=== PATIENT | female | born 1960 | race Caucasian/White ===

== ENCOUNTER → 2016-10-30 | Outpatient (CLI) | payer OTHER ==
--- NOTE | 2016-10-30 12:33 | RAD ---
EXAM DESCRIPTION: Knee,Right Complete CLINICAL HISTORY: 56 years, Female, PAIN IN RT KNEE COMPARISON: None. FINDINGS: No fracture or dislocation. Mild narrowing the patellofemoral joint space. Slight narrowing medially. No definite joint effusion. IMPRESSION: Mild degenerative change without fracture or dislocation Electronically signed by: Joel Kruse MD 10/30/2016 12:31 PM CDT
== END | disposition home or self-care (01) ==
LOC: YCFC.O 09:41
PROVIDERS: ATTEND Nurse Practitioner Family
DX: M25.561 Pain in right knee (principal)

== ENCOUNTER → 2017-01-29 | Outpatient (CLI) | payer OTHER ==
--- NOTE | 2017-01-29 13:18 | RAD ---
EXAM DESCRIPTION: Knee,Right Complete CLINICAL HISTORY: 56 years, Female, PAIN IN RIGHT KNEE COMPARISON: October 30, 2016 TECHNIQUE: Four views of the right knee FINDINGS: The right knee is normally aligned with mild osteopenia and very little degenerative disease. No fracture or dislocation or significant joint effusion is seen. No foreign body is noted. IMPRESSION: 1. No acute abnormality noted. Electronically signed by: Claudio Gamboa MD 01/29/2017 1:17 PM CDT
--- NOTE | 2017-01-29 13:20 | RAD ---
EXAM DESCRIPTION: Pelvis CLINICAL HISTORY: 56 years Female, PAIN IN RIGHT HIP COMPARISON: None. FINDINGS: A single view of the hip demonstrates mild osteopenia media. Previous internal fixation of the left hip with a fluted nail and sideplate noted extending from the femoral head to the femoral shaft. A long sideplate along the proximal and mid femoral shaft is noted with multiple anchoring screws. Right hip appears intact without evidence of prior fracture or orthopedic hardware. The bony pelvis appears intact. IMPRESSION: Previous internal fixation of the left hip and proximal femoral shaft. Otherwise negative study. Electronically signed by: Claudio Gamboa MD 01/29/2017 1:19 PM CDT
== END | disposition home or self-care (01) ==
LOC: RAD 08:13
PROVIDERS: ATTEND Orthopaedic Surgery
DX: M25.561 Pain in right knee (principal); M25.551 Pain in right hip

== ENCOUNTER → 2017-03-02 | Outpatient (CLI) | payer OTHER | END | disposition home or self-care (01) | LOC: LAB.O 09:54 | PROVIDERS: ATTEND Orthopaedic Surgery | DX: Z01.812 Encounter for preprocedural laboratory examination (principal) ==

== ENCOUNTER 2017-03-14 05:50 | Day surgery (SDC) | payer OTHER ==
--- NOTE | 2017-03-09 09:11 | HP ---
CHIEF COMPLAINT: Right knee pain. HISTORY OF PRESENT ILLNESS: Ms. North is a 56-year-old female with a history of pain in the knee. Unfortunately, she has also had mechanical symptoms. Because of the mechanical symptoms, the pain and the failure of conservative measures with disruption in her daily life, she has requested operative intervention. After discussing the risks, benefits and alternatives to that, the patient has given informed consent. PAST SURGICAL HISTORY: 1. Gastric bypass. MEDICATIONS: 1. Advil. ALLERGIES: NO KNOWN DRUG ALLERGIES. CODE STATUS: Full code. IMMUNIZATIONS: Up to date. SOCIAL HISTORY: The patient does smokes and drinks on occasion, but does not use any illicit drugs. FAMILY HISTORY: None pertinent to today's complaint. REVIEW OF SYSTEMS: Negative except as indicated in the History of Present Illness. PHYSICAL EXAMINATION: VITAL SIGNS: Blood pressure 144/85. Pulse 97. Height 5'3". Weight 151. MENTAL STATUS: The patient is awake, alert, and is able to give a good history and participate in the physical. The patient is oriented to person, place and time. SKIN: Normal tone and turgor. MUSCULOSKELETAL: She has diffuse tenderness about the knee, but it is most prominent along the medial aspect. She does have full extension, but the terminal 10 degrees is very painful. She has crepitus throughout her range of motion with flexion to about 130 degrees. She has no varus/valgus or anterior/ posterior laxity. She has positive Royer's on the medial aspect. IMAGING: X-rays show some diffuse arthritic changes, but no acute bony abnormality. ASSESSMENT: 1. Knee pain with mechanical symptoms. PLAN: The plan at this point is for knee arthroscopy. Given the pain that she is having, she has requested operative intervention. I think there is a potential that she has a meniscal tear. We have discussed the risks, benefits, and alternatives to that and the patient has given informed consent. #[id number] [facility]
--- NOTE | 2017-03-09 11:10 | RAD ---
EXAM DESCRIPTION: Chest,2 Views CLINICAL HISTORY: surg on 03/14/17 preop exam COMPARISON: None FINDINGS: Two-view chest x-ray shows cardiomediastinal silhouette and pulmonary vasculature to be within normal limits. The lungs are mildly hyperinflated. No acute infiltrate or consolidation is seen.. Costophrenic angles are sharp. Osseous structures are unremarkable IMPRESSION: No radiographic evidence of acute cardiopulmonary disease . Electronically signed by: Stiven Morales MD 03/09/2017 11:08 AM CDT
[2017-03-14] MEDS ORDERED: SODIUM CHL 0.9% 50ML MIN-BAG+ 50 ML IVPB ONE (06:13)
[2017-03-14] MEDS ORDERED: ceFAZolin SODIUM 1 GM VIAL ONE ×2 (06:13→06:32)
[2017-03-14] MEDS ORDERED: LACTATED RINGERS 1,000 ML ONE (06:13)
[2017-03-14] MEDS ORDERED: BUPIVACAINE 0.5% W/EPI 30 ML VIAL INJ ONE (06:32)
[2017-03-14] MEDS ORDERED: SODIUM CHLORIDE 0.9% 50 ML VIAL ONE (06:33)
[2017-03-14] MEDS ORDERED: fentaNYL CITRATE INJ 50 MCG/ML AMP ONE (08:27)
[2017-03-14] MEDS ORDERED: MIDAZOLAM INJ 2 MG/2 ML VIAL ONE (08:27)
[2017-03-14] MEDS ORDERED: PROPOFOL 200 MG/20 ML VIAL IV ONE (09:00)
[2017-03-14] MEDS: VANCOMYCIN HCL INJ 1,000 MG VIAL IVPB ONE ×2 (09:23→09:43)
[2017-03-14] MEDS: ceFAZolin SODIUM 1 GM VIAL ONE ×2 (09:23→09:43)
[2017-03-14] MEDS ORDERED: HYDROcodone 5MG/APAP 325MG 1 EA TAB PO ONE ×2 (11:00→11:26)
[2017-03-14] MEDS ORDERED: LIDOCAINE 1% 10 ML VIAL INJ ONE (12:00)
[2017-03-14] MEDS ORDERED: METOCLOPRAMIDE HCL INJ 10 MG/2 ML VIAL IV ONE (12:00)
[2017-03-14] MEDS ORDERED: DEXAMETHASONE INJ 10 MG/ML VIAL IV ONE (12:00)
[2017-03-14] MEDS ORDERED: diphenhydrAMINE HCL 50 MG/ML VIAL IV ONE (12:00)
[2017-03-14] MEDS ORDERED: raNITIdine HCL INJ 25 MG/ML VIAL IV ONE (12:00)
[2017-03-14] MEDS ORDERED: SODIUM CHLORIDE 0.9% 50 ML VIAL INJ ONE (12:00)
[2017-03-14 12:08] VITALS: BP 136/80; TEMP 97.8; O2SAT 97
--- NOTE | 2017-03-19 09:19 | OP ---
DATE OF PROCEDURE: 03/14/17 PREOPERATIVE DIAGNOSIS: 1. Knee pain. POSTOPERATIVE DIAGNOSIS: 1. Tear of the medial meniscus. 2. Osteoarthritis. PROCEDURE: 1. Partial meniscectomy. 2. Debridement. SURGEON: John Lugo MD. PERSONAL FITNESS MANAGER: Alexander León CST, SA-C. ANESTHESIA: General. COMPLICATIONS: None. FINDINGS: 1. Complex tearing of the medial meniscus. 2. Full thickness defects in the medial compartment involving the femoral cartilage with flap tears in the cartilage. 3. Normal ACL and normal PCL. 4. Normal lateral gutter. 5. Normal suprapatellar pouch. 6. Patellofemoral arthritis with full thickness defects in the trochlear groove. 7. Medial gutter. INDICATION: Ms. North has a long history of pain in the knee. She has had pain that has been refractory to conservative measures. Because of the ongoing pain and the refractory nature of it, she has requested operative intervention. After discussing the risks, benefits and alternatives to that, the patient has given informed consent for arthroscopy. PROCEDURE: The patient was brought to the Operating Room and placed in supine position. General anesthesia was induced and the patient's leg was sterilely prepped and draped. Following prepping and draping, standard anteromedial and anterolateral portals were established. Diagnostic arthroscopy was carried out with the above findings. Following diagnostic arthroscopy, the medial meniscus and the cartilage of the medial femoral condyle were debrided. Following debridement there, attention was focused on the lateral compartment and the cartilage was debrided. Attention was then focused on the patellofemoral compartment. The cartilage was debrided. The knee was very thoroughly irrigated and drained. Following draining of the knee, the wounds were closed with Nylon suture. Sterile dressings were placed. The patient was awoken from anesthesia and taken to Recovery. POSTOPERATIVE INSTRUCTIONS: The patient will be partial weightbearing until followup with us in two days. #[id number] [facility]
== END 2017-03-14 11:25 | disposition home or self-care (01) ==
LOC: AMB 05:50
PROVIDERS: ATTEND Orthopaedic Surgery
DX: S83.231A Complex tear of medial meniscus, current injury, right knee, initial encounter (principal); J44.9 Chronic obstructive pulmonary disease, unspecified; Z98.84 Bariatric surgery status; F17.200 Nicotine dependence, unspecified, uncomplicated
CPT/HCPCS: 01400; 29881; 36415; 71020; 80048; 85025; 93005; A4216; J0690; J1100; J1200; J2250; J2765; J2780; J3010; J3370; J3490; J7050; J7120

== ENCOUNTER → 2017-08-02 | Outpatient (CLI) | payer OTHER ==
--- NOTE | 2017-08-03 09:18 | RAD ---
EXAM DESCRIPTION: Chest,2 Views CLINICAL HISTORY: PRE OP COMPARISON: Previous study March 09, 2017 TECHNIQUE: PA/lateral FINDINGS: There is no acute appearing cardiac or pulmonary abnormality. Heart size is normal with normal pulmonary vascularity. No pleural effusion or pneumothorax. Lungs are clear with no consolidating infiltrate. Lateral view shows intact sternum and T-spine. IMPRESSION: No acute process is identified in the chest. Electronically signed by: Gokul Fragoso MD 08/03/2017 9:16 AM CDT
== END ==
LOC: LAB.O 10:27
PROVIDERS: ATTEND Orthopaedic Surgery
DX: Z01.818 Encounter for other preprocedural examination (principal)

== ENCOUNTER → 2017-08-27 | Outpatient (CLI) | payer OTHER | LOC: YCFC.O 08:41 | PROVIDERS: ATTEND Orthopaedic Surgery | DX: Z01.818 Encounter for other preprocedural examination (principal) ==

== ENCOUNTER 2017-08-29 05:45 | Outpatient (CLI) | payer OTHER ==
--- NOTE | 2017-08-27 11:52 | HP ---
CHIEF COMPLAINT: Right knee pain. HISTORY OF PRESENT ILLNESS: Eliana is a 56-year-old female with a history of severe right knee pain. She has had injections, anti-inflammatories, therapy and even arthroscopy. She had a short period of relief, however, has of late been having such severe pain that it is causing her to have to use a cane. She denies any radiation of pain and denies any neurologic symptoms at this time. PAST SURGICAL HISTORY: 1. Gastric bypass surgery. 2. Knee arthroscopy. MEDICATIONS: 1. Advil p.r.n. ALLERGIES: NO KNOWN DRUG ALLERGIES. CODE STATUS: Full code. IMMUNIZATIONS: Up to date. SOCIAL HISTORY: The patient does not use any illicit drugs. She does smoke and does drink on occasion. FAMILY HISTORY: None pertinent to today's complaint. REVIEW OF SYSTEMS: Negative except as indicated in the History of Present Illness. PHYSICAL EXAMINATION: VITAL SIGNS: Blood pressure 145/82. Pulse 94. Height 5'3". Weight 153 pounds. MENTAL STATUS: The patient is awake, alert, and is able to give a good history and participate in the physical. The patient is oriented to person, place and time. SKIN: Normal tone and turgor. HEENT: Normocephalic, atraumatic. Pupils equal, round and reactive. Mucosal membranes are moist. NECK: Normal range of motion. No thyromegaly, no lymphadenopathy. CHEST: Normal respiratory excursion. CARDIAC: Regular rate and rhythm. No murmurs, rubs or gallops. MUSCULOSKELETAL: Bilateral upper extremities show full active range of motion. She has intact sensation. They are warm and well perfused. She has no deformity. Strength is 5/5. The left lower extremity shows full range of motion of the hip. She has intact sensation in the extremity. She has no varus /valgus or anterior/posterior laxity. She has no instability and no crepitus. The right knee shows severe pain medially and moderate pain laterally. She has pain with patellar mobilization. She has a mild effusion today. Sensation is intact. It is warm and well perfused. She has crepitus throughout her range of motion, but maintains full extension with flexion to about 120 degrees. ASSESSMENT: 1. Arthritis failed conservative measures. PLAN: At this point, she has failed all conservative measures. To that end, she has requested operative intervention. We have discussed the risks, benefits , and alternatives to that and the patient has given informed consent. #[id number] [facility]
[2017-08-29] MEDS ORDERED: MORPHINE SULFATE INJ 10 MG/ML VIAL IM PRN (07:05)
[2017-08-29] MEDS ORDERED: SODIUM CHLORIDE 0.9% (FLUSH) 10 ML SYG IV PRN (07:05)
[2017-08-29] MEDS ORDERED: BISACODYL SUPPOSITORY 10 MG PR PRN (07:05)
[2017-08-29] MEDS ORDERED: TEMAZEPAM 15 MG CAP PO PRN (07:05)
[2017-08-29] MEDS ORDERED: HYDROcodone 5MG/APAP 325MG 1 EA TAB PO PRN (07:05)
[2017-08-29] MEDS ORDERED: DEX 5% W/NACL 0.45% 1000ML 1,000 ML IVS PRN (07:05)
[2017-08-29] MEDS ORDERED: TRANEXAMIC ACID INJ 1,000 MG in SODIUM CHLORIDE 0.9% 100ML 100 ML IVPB ONE (07:05)
[2017-08-29] MEDS ORDERED: BENZOCAINE-MENTH LOZ (CEPACOL) 1 EA LOZ MT PRN (07:05)
[2017-08-29] MEDS ORDERED: MAGNESIUM HYDROXIDE 30 ML UD PO PRN (07:05)
[2017-08-29] MEDS ORDERED: PROMETHAZINE HCL INJ 12.5 MG in SODIUM CHLORIDE 0.9% 50ML 50 ML IVPB PRN (07:05)
[2017-08-29] MEDS ORDERED: ZOLPIDEM TARTRATE 5 MG TAB PO PRN (07:05)
[2017-08-29] MEDS ORDERED: traMADol HCL 50 MG TAB PO PRN (07:05)
[2017-08-29] MEDS ORDERED: NALOXONE HCL INJ 0.4 MG/ML VIAL IV PRN (07:05)
[2017-08-29] MEDS ORDERED: MORPHINE SULFATE INJ 10 MG/ML VIAL IV PRN (07:05)
[2017-08-29] MEDS ORDERED: ALUMINUM & MAGNESIUM HYDROXIDE 30 ML UD PO PRN (07:05)
[2017-08-29] MEDS ORDERED: ACETAMINOPHEN 500 MG TAB PO PRN (07:05)
[2017-08-29] MEDS ORDERED: ONDANSETRON INJ 4 MG/2 ML VIAL IV PRN (07:05)
[2017-08-29] MEDS ORDERED: CYCLOBENZAPRINE HCL 10 MG TAB PO PRN (07:05)
[2017-08-29] MEDS ORDERED: ACETAMINOPHEN 325 MG TAB PO PRN (07:05)
[2017-08-29] MEDS ORDERED: PROMETHAZINE HCL INJ 25 MG in SODIUM CHLORIDE 0.9% 50ML 50 ML IVPB PRN (07:05)
[2017-08-29] MEDS ORDERED: MORPHINE PCA 1 MG/ML 100 ML BAG IVPB SCH (07:30)
[2017-08-29] MEDS ORDERED: CELECOXIB 100 MG CAP PO SCH (07:30)
[2017-08-29] MEDS ORDERED: IV SET AND CAP CHANGE INJ INJ SCH (07:30)
[2017-08-29] MEDS ORDERED: ceFAZolin SODIUM 1 GM VIAL ONE ×3 (08:46→08:50)
[2017-08-29] MEDS ORDERED: BUPIVACAINE 0.25% W/EPI 50 ML VIAL INJ ONE (08:46)
[2017-08-29] MEDS ORDERED: VANCOMYCIN HCL INJ 1,000 MG VIAL IVPB ONE ×2 (08:46→08:50)
[2017-08-29] MEDS ORDERED: LACTATED RINGERS 1,000 ML ONE (08:49)
[2017-08-29] MEDS ORDERED: SCOPOLAMINE PATCH 1.5MG 1 EA TD ONE (08:49)
[2017-08-29] MEDS ORDERED: SODIUM CHL 0.9% 50ML MIN-BAG+ 50 ML IVPB ONE (08:49)
[2017-08-29] MEDS ORDERED: SODIUM CHLORIDE 0.9% 250ML 250 ML ONE (08:50)
[2017-08-29] MEDS ORDERED: SODIUM CHLORIDE 0.9% 100ML 0 ML IVPB ONE (08:50)
[2017-08-29] MEDS ORDERED: TRANEXAMIC ACID 1,000 MG/10 ML VIAL ONE ×2 (08:50→08:51)
[2017-08-29] MEDS ORDERED: MORPHINE SULF *EPIDURAL* 1 MG/ML VIAL ONE (08:52)
[2017-08-29] MEDS ORDERED: MIDAZOLAM INJ 2 MG/2 ML VIAL ONE (08:52)
[2017-08-29] MEDS ORDERED: ACETAMINOPHEN IV 1000MG 0 ML ONE (08:52)
[2017-08-29] MEDS ORDERED: fentaNYL CITRATE INJ 50 MCG/ML AMP ONE (08:52)
[2017-08-29] MEDS ORDERED: MAGNESIUM OXIDE 400 MG TAB PO SCH (09:00)
[2017-08-29 09:27] VITALS: TEMP 98.1; O2SAT 96
[2017-08-29 09:35] VITALS: BP 128/70
[2017-08-29] MEDS ORDERED: ceFAZolin SODIUM 2 GRAMS PREMI 2 GM in PREMIX BAG 1 BAG IVPB SCH (16:00)
[2017-08-29] MEDS ORDERED: VANCOMYCIN HCL INJ 1,000 MG in SODIUM CHLORIDE 0.9% 250ML 250 ML IVPB SCH (18:00)
[2017-08-29] MEDS ORDERED: DOCUSATE CALCIUM 240 MG CAP PO SCH (21:00)
[2017-08-29] MEDS ORDERED: ENOXAPARIN SODIUM 30 MG/0.3 ML SYG SUBCU SCH (23:00)
[2017-08-31] MEDS ORDERED: SODIUM CHLORIDE 0.9% (FLUSH) 10 ML SYG IV SCH (09:00)
[2017-09-01] MEDS ORDERED: MAGNESIUM HYDROXIDE 30 ML UD PO ONE (21:00)
[2017-09-01] MEDS ORDERED: BISACODYL SUPPOSITORY 10 MG PR ONE (21:00)
== END 2017-08-29 09:20 | disposition home or self-care (01) ==
LOC: AMB 05:45 → EDSTATUS 09:45
PROVIDERS: ATTEND Orthopaedic Surgery
DX: Z01.818 Encounter for other preprocedural examination (principal); M17.11 Unilateral primary osteoarthritis, right knee; Z53.20 Procedure and treatment not carried out because of patient's decision for unspecified reasons
CPT/HCPCS: 36415; 86850; 86900; 86901; J0690; J3370; J7050; J7120

== ENCOUNTER → 2018-02-28 | Outpatient (CLI) | payer MEDICARE, MEDICAID | LOC: LAB.O 11:38 | PROVIDERS: ATTEND Orthopaedic Surgery | DX: Z01.818 Encounter for other preprocedural examination (principal) ==

== ENCOUNTER → 2018-03-08 | Outpatient (CLI) | payer MEDICARE, MEDICAID ==
--- NOTE | 2018-03-08 11:52 | RAD ---
EXAM DESCRIPTION: Chest,2 Views CLINICAL HISTORY: PREOP COMPARISON: Previous study August 02, 2017 TECHNIQUE: PA/lateral FINDINGS: There is no acute appearing cardiac or pulmonary abnormality. Heart size is normal with normal pulmonary vascularity. No pleural effusion or pneumothorax. Lungs are clear with no consolidating infiltrate. Lateral view shows intact sternum and T-spine. IMPRESSION: No acute process is identified in the chest. Electronically signed by: Gokul Fragoso MD 03/08/2018 11:50 AM CDT
== END ==
LOC: LAB.O 09:29
PROVIDERS: ATTEND Nurse Practitioner Family
DX: Z01.818 Encounter for other preprocedural examination (principal)

== ENCOUNTER 2018-04-02 05:39 | Inpatient (IN) | payer MEDICARE, MEDICAID ==
--- NOTE | 2018-04-01 11:56 | HP ---
CHIEF COMPLAINT: Right knee pain. HISTORY OF PRESENT ILLNESS: Eliana is a 57-year-old female with a history of severe pain in the knee. She has had pain going for a very long time and has had interventions to include activity modification, anti-inflammatories, injections and arthroscopy. At the time of arthroscopy, it was noted that she had diffuse arthritic changes in addition to meniscal pathology. Because of her failure of conservative measures and ongoing dysfunction, she has requested operative intervention. After discussing the risks, benefits and alternatives to that, the patient has given informed consent. PAST SURGICAL HISTORY: 1. Knee arthroscopy. MEDICATIONS: None. ALLERGIES: NO KNOWN DRUG ALLERGIES. FAMILY HISTORY: None pertinent to today's complaint. SOCIAL HISTORY: The patient does not drink, smoke or use any illicit drugs. REVIEW OF SYSTEMS: Negative except as indicated in the History of Present Illness. PHYSICAL EXAMINATION: VITAL SIGNS: Blood pressure 148/83. Pulse 83. Height 5'3". Weight 157 pounds. MENTAL STATUS: The patient is awake, alert, and is able to give a good history and participate in the physical. The patient is oriented to person, place and time. SKIN: Normal tone and turgor. HEENT: Normocephalic, atraumatic. Pupils equal, round and reactive. Mucosal membranes are moist. NECK: Normal range of motion. No thyromegaly, no lymphadenopathy. CHEST: Normal respiratory excursion. CARDIAC: Regular rate and rhythm. No murmurs, rubs or gallops. MUSCULOSKELETAL: The bilateral upper extremities show no significant pain with range of motion. Sensation is intact. They are warm and well perfused. Strength is 5/5. She has no deformity and no crepitus. The left lower extremity shows full range of motion of the hip. She has intact sensation throughout. She has no significant pain with range of motion of the knee. The right lower extremity shows full range of motion of the hip without significant pain. Sensation is intact in the extremity. She has crepitus throughout the range of motion along with pain. Strength is 5/5. She has no varus/valgus or anterior/posterior laxity. IMAGING: X-rays show arthritis as well as findings at the time of arthroscopy. ASSESSMENT: 1. Arthritis, failed conservative measures. PLAN: The plan at this point is for total knee arthroplasty. We have discussed the risks, benefits, and alternatives to that and the patient has given informed consent. #[id number] [facility]
[2018-04-02] MEDS ORDERED: SODIUM CHL 0.9% 100ML MINI-BAG 100 ML IVPB ONE (07:47)
[2018-04-02] MEDS ORDERED: VANCOMYCIN HCL INJ 1,000 MG VIAL IVPB ONE ×4 (07:48→19:24)
[2018-04-02] MEDS ORDERED: TRANEXAMIC ACID 1,000 MG/10 ML VIAL ONE ×2 (07:48→07:49)
[2018-04-02] MEDS ORDERED: SODIUM CHLORIDE 0.9% 100ML 100 ML IVPB ONE (07:48)
[2018-04-02] MEDS ORDERED: LACTATED RINGERS 1,000 ML ONE ×2 (07:48→12:01)
[2018-04-02] MEDS ORDERED: SODIUM CHLORIDE 0.9% 250ML 250 ML ONE ×4 (07:48→19:24)
[2018-04-02] MEDS ORDERED: ceFAZolin SODIUM 1 GM VIAL ONE ×2 (07:48→08:56)
[2018-04-02] MEDS ORDERED: TRANEXAMIC ACID INJ 1,000 MG in SODIUM CHLORIDE 0.9% 100ML 100 ML IVPB ONE (09:18)
[2018-04-02] MEDS ORDERED: SODIUM CHLORIDE 0.9% (FLUSH) 10 ML SYG IV PRN (09:18)
[2018-04-02] MEDS ORDERED: ONDANSETRON INJ 4 MG/2 ML VIAL IV PRN (09:18)
[2018-04-02] MEDS ORDERED: MORPHINE SULFATE INJ 10 MG/ML VIAL IV PRN (09:18)
[2018-04-02] MEDS ORDERED: PROMETHAZINE HCL INJ 25 MG in SODIUM CHLORIDE 0.9% 50ML 50 ML IVPB PRN (09:18)
[2018-04-02] MEDS ORDERED: BENZOCAINE-MENTH LOZ (CEPACOL) 1 EA LOZ MT PRN (09:18)
[2018-04-02] MEDS ORDERED: BISACODYL SUPPOSITORY 10 MG PR PRN (09:18)
[2018-04-02] MEDS ORDERED: PROMETHAZINE HCL INJ 12.5 MG in SODIUM CHLORIDE 0.9% 50ML 50 ML IVPB PRN (09:18)
[2018-04-02] MEDS ORDERED: NALOXONE HCL INJ 0.4 MG/ML VIAL IV PRN (09:18)
[2018-04-02] MEDS ORDERED: MORPHINE SULFATE INJ 10 MG/ML VIAL IM PRN (09:18)
[2018-04-02] MEDS ORDERED: ACETAMINOPHEN 500 MG TAB PO PRN (09:18)
[2018-04-02] MEDS ORDERED: TEMAZEPAM 15 MG CAP PO PRN (09:18)
[2018-04-02] MEDS ORDERED: MAGNESIUM HYDROXIDE 30 ML UD PO PRN (09:18)
[2018-04-02] MEDS ORDERED: ALUMINUM & MAGNESIUM HYDROXIDE 30 ML UD PO PRN (09:18)
[2018-04-02] MEDS ORDERED: ZOLPIDEM TARTRATE 5 MG TAB PO PRN (09:18)
[2018-04-02] MEDS ORDERED: ACETAMINOPHEN 325 MG TAB PO PRN (09:18)
[2018-04-02] MEDS ORDERED: MORPHINE PCA 1 MG/ML 100 ML BAG IVPB SCH (09:30)
[2018-04-02] MEDS ORDERED: IV SET AND CAP CHANGE INJ INJ SCH (09:30)
[2018-04-02] MEDS ORDERED: SUGAMMADEX SODIUM 200 MG/2 ML VIAL IV ONE (09:52)
[2018-04-02] MEDS ORDERED: MIDAZOLAM INJ 2 MG/2 ML VIAL ONE (09:53)
[2018-04-02] MEDS ORDERED: fentaNYL CITRATE INJ 50 MCG/ML AMP ONE ×2 (09:53→12:14)
[2018-04-02] MEDS ORDERED: MORPHINE SULFATE *EPIDURAL* 0.5 MG/ML VIAL ONE (09:53)
[2018-04-02] MEDS ORDERED: LIDOCAINE 1% 10 ML VIAL INJ ONE ×2 (10:03→12:00)
[2018-04-02] MEDS: VANCOMYCIN HCL INJ 1,000 MG VIAL IVPB ONE ×2 (11:00→11:40)
[2018-04-02] MEDS: ceFAZolin SODIUM 1 GM VIAL ONE ×2 (11:00→11:40)
[2018-04-02] MEDS: BUPIVACAINE LIPOSOME 13.3 MG/ML VIAL INJ ONE ×2 (11:01→11:39)
[2018-04-02] MEDS: BUPIVACAINE 0.5% 30 ML VIAL INJ ONE ×2 (11:01→11:39)
[2018-04-02] MEDS ORDERED: ONDANSETRON INJ 4 MG/2 ML VIAL IV ONE (12:00)
[2018-04-02] MEDS ORDERED: DEXAMETHASONE INJ 10 MG/ML VIAL IV ONE (12:00)
[2018-04-02] MEDS ORDERED: WATER FOR INJ 10 ML VIAL INJ ONE (12:00)
[2018-04-02] MEDS ORDERED: VECURONIUM BROMIDE 10 MG VIAL IV ONE (12:00)
[2018-04-02] MEDS ORDERED: PROPOFOL 200 MG/20 ML VIAL IV ONE (12:00)
[2018-04-02] MEDS: diphenhydrAMINE HCL 50 MG/ML VIAL ONE ×4 (12:30→13:05)
[2018-04-02] MEDS ORDERED: hydrOXYzine HCl 50 MG/ML VIAL IM ONE (13:09)
[2018-04-02] MEDS ORDERED: diphenhydrAMINE HCL 25 MG CAP PO PRN (14:58)
[2018-04-02] MEDS ORDERED: ceFAZolin SODIUM 2 GRAMS PREMI 50 ML IVPB ONE ×2 (15:48→19:23)
[2018-04-02] MEDS ORDERED: ceFAZolin SODIUM 1 GM in SODIUM CHL 0.9% 50ML MIN-BAG+ 50 ML IVPB SCH (16:00)
[2018-04-02] MEDS: ceFAZolin SODIUM 2 GRAMS PREMI 2 GM in PREMIX BAG 1 BAG IVPB SCH ×2 (16:11→23:41)
[2018-04-02] MEDS: CELECOXIB 100 MG CAP PO SCH (16:11)
--- NOTE | 2018-04-02 16:33 | RAD ---
Procedure: XR RIGHT KNEE 1-2 VIEWS Exam Date: 04/02/2018 Ordering Provider: RIDDHI ZAMUDIO Clinical Indication: TKA Comparison: 01/29/2017 Findings/impression: Postsurgical changes of total right knee arthroplasty with good alignment and no evidence of hardware complication. Expected gas within the soft tissues about the knee and thigh. There is no fracture or dislocation. Electronically signed by: Neo Haider MD 04/02/2018 4:32 PM [facility]
[2018-04-02] MEDS: DEX 5% W/NACL 0.45% 1000ML 1,000 ML IVS PRN (16:57)
[2018-04-02] MEDS: VANCOMYCIN HCL INJ 1,000 MG in SODIUM CHLORIDE 0.9% 250ML 250 ML IVPB SCH (17:40)
[2018-04-02] MEDS ORDERED: diphenhydrAMINE HCL 50 MG/ML VIAL IV PRN (17:50)
[2018-04-02] MEDS ORDERED: ENOXAPARIN SODIUM 30 MG/0.3 ML SYG SUBCU ONE (19:23)
--- NOTE | 2018-04-02 20:04 | CONS ---
DATE OF CONSULTATION: 04/02/18 SUPERVISING PHYSICIAN: Ty Radford M.D. CHIEF COMPLAINT: Right knee pain. HISTORY OF PRESENT ILLNESS: This is a 57 year-old female patient who has a history of severe pain in her right knee. It has progressively worsened over the last few years and she has tried conservative measures, including antiinflammatories injections, arthroscopy and activity modification. Because she has failed conservative measures, she has requested operative intervention per Dr. John Lugo, orthopedic surgeon. She was admitted today for a right total knee arthroplasty. She had no problems intraoperatively and I am seeing the patient in consultation postoperatively on the Medical/Surgical floor. PAST MEDICAL HISTORY: 1. Osteoarthritis. 2. Poor dentition. PAST SURGICAL HISTORY: 1. Gastric bypass. 2. Two sections. 3. Left femur open reduction and internal fixation. 4. Dilatation and curettage. 5. Right knee arthroscopy. OUTPATIENT MEDICATIONS: 1. Advil. ALLERGIES: NO KNOWN DRUG ALLERGIES. SOCIAL HISTORY: She is . She has 2 children. She smokes 2 packs of cigarettes daily and has since she was 25 years old. She also drinks 5 to 6 beers nightly. She also drinks wine socially. Steph Ga, ROC, is her primary care provider. REVIEW OF SYSTEMS: Negative except as per History of Present Illness. PHYSICAL EXAMINATION: VITAL SIGNS: She is afebrile, heart rate 79, blood pressure 143/75, respiratory rate 20, O2 sat is 93% on room air. GENERAL: This is a 57 year-old female patient lying in her hospital bed. She is in no acute distress. HEENT: Normocephalic and atraumatic. Pupils are equal and reactive. Oropharynx is clear. She does have poor dentition. NECK: Supple without mass. RESPIRATORY: Essentially clear to auscultation bilaterally. CHEST: There is equal rise and fall of the chest with inspiration and expiration. HEART: Regular rate and rhythm. GASTROINTESTINAL: Abdomen is soft, nondistended, non-tender. Bowel sounds are positive. EXTREMITIES: She has her right leg in the CPM machine. She has an Iceman on her right knee. Her bilateral pedal pulses are palpable at +2. NEUROLOGIC: She is awake, alert and oriented times three. LABORATORY: Urinalysis is basically within normal limits except she does have a small amount of urine blood. All other labs and films have been reviewed via the EMR. IMPRESSION: 1. Osteoarthritis of the right knee status post right total knee arthroplasty performed by Dr. John Lugo, orthopedic surgeon. Postoperative day #0. 2. Tobacco abuse with the patient having a 50 pack year history. PLAN: We will continue present supportive care. Orthopedic issues will be per Dr. John Lugo, orthopedic surgeon. Will begin her physical therapy tomorrow for strengthening and conditioning. We discussed tobacco cessation and I have encouraged her to quit. She did request a nicotine patch and I have ordered a nicotine patch. She has had some itching so I have ordered some Benadryl for the pruritus. I will also order some p.r.n. breathing treatments. Will continue to monitor closely and follow as needed. Dr. Radford is the collaborating physician available for consultation. #[id number] [facility]
[2018-04-02] MEDS: DOCUSATE CALCIUM 240 MG CAP PO SCH (20:36)
[2018-04-02] MEDS: ENOXAPARIN SODIUM 30 MG/0.3 ML SYG SUBCU SCH (22:59)
[2018-04-03] MEDS: VANCOMYCIN HCL INJ 1,000 MG in SODIUM CHLORIDE 0.9% 250ML 250 ML IVPB SCH (06:21)
[2018-04-03] MEDS ORDERED: ceFAZolin SODIUM 2 GRAMS PREMI 50 ML IVPB ONE (07:56)
[2018-04-03] MEDS: CELECOXIB 100 MG CAP PO SCH ×2 (08:02→17:20)
[2018-04-03] MEDS: traMADol HCL 50 MG TAB PO PRN ×2 (08:03→15:55)
[2018-04-03] MEDS: ceFAZolin SODIUM 2 GRAMS PREMI 2 GM in PREMIX BAG 1 BAG IVPB SCH (08:45)
[2018-04-03] MEDS: MAGNESIUM OXIDE 400 MG TAB PO SCH (09:57)
[2018-04-03] MEDS: CYCLOBENZAPRINE HCL 10 MG TAB PO PRN (09:58)
--- NOTE | 2018-04-03 10:37 | OP ---
DATE OF PROCEDURE: 04/02/18 PREOPERATIVE DIAGNOSIS: 1. Arthritis of the knee. POSTOPERATIVE DIAGNOSIS: 1. Arthritis of the knee. PROCEDURE: 1. Total knee arthroplasty. SURGEON: John Lugo MD. DOCUMENTATION LIAISON: Alexander León CST, SA-C. ANESTHESIA: General anesthesia. COMPLICATIONS: None. FINDINGS: Advanced arthritis of the knee. INDICATION: Ms. North has a history of severe knee pain for which she has undergone injections, arthroscopy, activity modification and anti- inflammatories. Unfortunately, she failed to gain relief. Because of her ongoing pain and dysfunction associated with this, she has requested operative intervention. After discussing the risks, benefits and alternatives to that, the patient has given informed consent for total knee arthroplasty. PROCEDURE: The patient was brought to the Operating Room and placed in supine position. General anesthesia was induced and the patient's leg was sterilely prepped and draped. Following prepping and draping, the distal femur was exposed and using an intramedullary guide, the distal femoral cut was made. The appropriate sized cutting block was measured, pinned into place, and the anterior, posterior, and chamfer cuts were made. The ACL was transected and the tibia was subluxed. Both the medial and lateral menisci were removed. An intramedullary guide was used to make the proximal tibial cut. The appropriate sized base plate was placed and a trial polyethylene was placed. The trial femur was placed, the knee was reduced, and the knee was taken through a range of motion. The knee was stable in anterior, posterior, varus and valgus stress. The patella tracked anatomically without evidence of subluxation or dislocation. After trialing, the trial components were removed and the bony surfaces were thoroughly irrigated with saline. Following irrigation, the surfaces were dried and the final components were cemented into place. The excess cement was removed and the remaining cement was allowed to cure. The knee was again taken through a range of motion to confirm stability. The wound was then irrigated with saline and closure was performed using PDS to approximate the arthrotomy followed by closure of the subcutaneous tissues with a combination of running and interrupted Monocryl sutures. Sterile dressing was placed. The patient was awoken from anesthesia and taken to Recovery. POSTOPERATIVE PLAN: The patient will be weight-bearing as tolerated on postoperative day 1. COMPONENTS: Cass Triathlon knee, size 3 femur, size 3 tibia, 11 mm insert. [id number]
--- NOTE | 2018-04-03 10:42 | PN ---
DATE: 04/02/18 SUBJECTIVE: She is doing well and has no pain. OBJECTIVE: Afebrile. Vital signs stable. Dressing is clean, dry and intact. ASSESSMENT: Status post total knee arthroplasty. PLAN: She will begin weightbearing as tolerated on postoperative 1 day. #[id number] [facility]
--- NOTE | 2018-04-03 10:44 | PN ---
DATE: 04/03/18 SUBJECTIVE: Ms. North is doing well and had good pain control overnight. OBJECTIVE: Afebrile. Vital signs stable. Dressing is clean, dry and intact. ASSESSMENT: Status post total knee arthroplasty. PLAN: The plan at this point is for her to begin therapy today with weightbearing as tolerated. #[id number] [facility]
[2018-04-03] MEDS: ENOXAPARIN SODIUM 30 MG/0.3 ML SYG SUBCU SCH ×2 (11:36→22:33)
[2018-04-03] MEDS ORDERED: MORPHINE SULFATE INJ 10 MG/ML VIAL IV PRN (16:41)
[2018-04-03] MEDS: DEX 5% W/NACL 0.45% 1000ML 1,000 ML IVS PRN (17:24)
[2018-04-03] MEDS: DOCUSATE CALCIUM 240 MG CAP PO SCH (20:24)
--- NOTE | 2018-04-03 23:58 | PN ---
DATE: 04/03/18 SUPERVISING PHYSICIAN: Ty Radford M.D. SUBJECTIVE: The patient is lying in bed. Complains that her pain has been quite intense today. She felt like she over did it yesterday. She felt her physical therapy did not go well. Otherwise she denies chest pain, nausea, vomiting, diarrhea, shortness of breath. OBJECTIVE: VITAL SIGNS: She is afebrile, heart rate 72, blood pressure 121/28, respiratory rate 20, O2 sat 95% on room air. RESPIRATORY: Essentially clear to auscultation bilaterally. CARDIAC: Regular rate and rhythm. GASTROINTESTINAL: Abdomen is soft, nondistended, non-tender. Bowel sounds are positive. EXTREMITIES: Bilateral pedal pulses are palpable at +2. She has a dressing to her right knee that is dry and intact. NEUROLOGIC: She is awake, alert and oriented times three. LABORATORY: Hemoglobin 11.3, hematocrit 34.3. All other labs and films have been reviewed via the EMR. ASSESSMENT: 1. Osteoarthritis of the right knee status post right total knee arthroplasty performed by Dr. John Lugo, orthopedic surgeon. Postoperative day #1. 2. Tobacco abuse with the patient having a 50 pack year history. PLAN: We will continue present supportive care. Orthopedic issues will be per Dr. John Lugo, orthopedic surgeon. She will continue her physical therapy for strengthening and conditioning. Will plan for discharge on Sunday with her continuing with outpatient physical therapy at [facility]'s outpatient physical therapy department. I have slightly increased her morphine to help with pain control. I have encouraged good pulmonary hygiene. Will continue to monitor closely and follow as needed. Dr. Radford is the collaborating physician available for consultation. #[id number] [facility]
[2018-04-04] MEDS: traMADol HCL 50 MG TAB PO PRN ×3 (03:49→17:08)
[2018-04-04] MEDS: CYCLOBENZAPRINE HCL 10 MG TAB PO PRN ×2 (03:49→11:37)
[2018-04-04] MEDS: CELECOXIB 100 MG CAP PO SCH ×2 (07:57→17:09)
[2018-04-04] MEDS: MAGNESIUM OXIDE 400 MG TAB PO SCH (08:32)
[2018-04-04] MEDS ORDERED: SODIUM CHLORIDE 0.9% (FLUSH) 10 ML SYG IV SCH (09:00)
--- NOTE | 2018-04-04 09:01 | PN ---
DATE: 04/04/18 SUBJECTIVE: Ms. North is doing well and she is up walking right now. OBJECTIVE: Afebrile. Vital signs stable. Wound is clean. There are no signs or symptoms of infection. ASSESSMENT: Status post total knee arthroplasty. PLAN: She will continue with her current weightbearing status as tolerated. [facility][id number] [facility]
[2018-04-04] MEDS: ENOXAPARIN SODIUM 30 MG/0.3 ML SYG SUBCU SCH (11:41)
[2018-04-04] MEDS ORDERED: BISACODYL TAB 5 MG TAB PO PRN (12:35)
--- NOTE | 2018-04-04 12:59 | PN ---
DATE: 04/04/18 SUPERVISING PHYSICIAN: Ty Radford M.D. SUBJECTIVE: The patient is lying in bed. She is on the CPM machine and feels much better today than she did yesterday. She had a good night's sleep and her pain has been better controlled today. She felt like physical therapy was going well. She is still unsure as what her discharge will be as her daughter may be getting a new job and it will depend on she goes to [facility] or if she goes home with her daughter for outpatient physical therapy. OBJECTIVE: VITAL SIGNS: She is afebrile, heart rate 92, blood pressure 142/79, respiratory rate 18, O2 sat 93% on room air. RESPIRATORY: Essentially clear to auscultation bilaterally. CARDIAC: Regular rate and rhythm. GASTROINTESTINAL: Abdomen is soft, nondistended, non-tender. Bowel sounds are positive. EXTREMITIES: She has her right leg in the CPM machine. Bilateral pedal pulses are +2. Dressing to her right knee is dry and intact. NEUROLOGIC: She is awake, alert and oriented times three. LABORATORY: There are no labs or films to report at this time. ASSESSMENT: 1. Osteoarthritis of the right knee status post right total knee arthroplasty performed by Dr. John Lugo, orthopedic surgeon. Postoperative day #2. 2. Tobacco abuse with the patient having a 50-pack year history. PLAN: We will continue present supportive care. Orthopedic issues will be per Dr. John Lugo, orthopedic surgeon. She will continue her physical therapy for strengthening and conditioning. Will plan for discharge tomorrow. At this point, we will find out if her daughter is able to assist her to her appointments and Social Service is working on her discharge planning. Her pain is under much better control today and I have encouraged good pulmonary hygiene. Will monitor closely and follow as needed. Dr. Radford is the collaborating physician available for consultation. [facility][id number] [facility]
[2018-04-04 13:52] VITALS: BP 110/65; TEMP 98.6; O2SAT 97
[2018-04-04] MEDS ORDERED: INFLUENZA VIRUS VACC (ADULT) 0.5 ML SYG IM ONE (16:38)
--- NOTE | 2018-04-04 21:40 | DS ---
SUPERVISING PHYSICIAN: Ty Radford M.D. DISCHARGE DIAGNOSIS: 1. Osteoarthritis of the right knee status post right total knee arthroplasty performed by Dr. John Lugo, orthopedic surgeon. Postoperative day #2. 2. Tobacco abuse with the patient having a 50-pack year smoking history. HISTORY OF PRESENT ILLNESS: This is a 57 year-old female patient who has a long history of severe pain in her right knee. It progressively worsened over the last few years and she has tried conservative measures, including antiinflammatories, injections, arthroscopy and activity modification. Because of the failure of conservative measures to control her pain, she has requested Dr. John Lugo, orthopedic surgeon, for operative intervention. On the day of admission, she was admitted for a right total knee arthroplasty. She had no problems intraoperatively and I saw the patient in consultation postoperatively in consultation. HOSPITAL COURSE: Her first day postoperatively she experienced an increased amount of pain. She had a difficult time getting through her physical therapy. Today, her physical therapy progressed well. Earlier in the day they had decided she would stay one more day, but after completing her afternoon physical therapy session she progressed well with her therapy as well as completing going up and down steps, and it was decided that she would be discharged this evening. DISCHARGE PLAN: The patient will be discharged home in stable condition. Her daughter will assist her with her activities of daily living. She will continue her physical therapy on an outpatient basis at [facility]'s physical therapy department. I have ordered her a walker which her daughter picked up. I have also given her a prescription for Xarelto, Cyclobenzaprine and Tramadol. She is encouraged to stop her NSAIDs until completion of her Xarelto medication. I have discussed at length smoking cessation and I have encouraged her to stop smoking. She is to call Dr. Lugo or return to the hospital for any problems or complications. DISCHARGE MEDICATIONS: 1. Cyclobenzaprine. 2. Xarelto. 3. Advil. #[id number] MTDD
[2018-04-05] MEDS ORDERED: MAGNESIUM HYDROXIDE 30 ML UD PO ONE (21:00)
[2018-04-05] MEDS ORDERED: BISACODYL SUPPOSITORY 10 MG PR ONE (21:00)
== END 2018-04-04 17:59 | disposition home or self-care (01) | DRG 470 ==
LOC: AMB 05:39 → MS 13:45
PROVIDERS: ADMIT Orthopaedic Surgery; ATTEND Orthopaedic Surgery
PROC: 0SRC0J9 Replacement of Right Knee Joint with Synthetic Substitute, Cemented, Open Approach (ICD-10-PCS; principal; 2018-04-02 10:20)
DX: M17.11 Unilateral primary osteoarthritis, right knee (principal); Z98.84 Bariatric surgery status; F17.210 Nicotine dependence, cigarettes, uncomplicated

== ENCOUNTER 2018-04-05 14:07 | Emergency (ER) | payer MEDICARE, MEDICAID ==
--- NOTE | 2018-04-05 14:41 | ED.PDOC ---
History of Present Illness - General Chief Complaint: Respiratory Problem Stated Complaint: chest pain,sob Time Seen by Provider: 04/05/18 14:37 Source: patient Exam Limitations: no limitations - History of Present Illness Initial Comments: PT C/O CP AND SOB PRIMARILY TODAY DURING REHAB. S/P R KNEE ARTHROPLASTY 10 DAYS AGO. LEG AND KNEE HAVE FELT GOOD. Severity: moderate Improving Factors: other - SPTONANEOUS Worsening Factors: nothing Associated Symptoms: denies symptoms Allergies/Adverse Reactions: Allergies Codeine Allergy (Verified 10/29/15 11:38) Home Medications: Ambulatory Orders Ibuprofen [Advil] 600 mg PO TID PRN 03/09/17 Cyclobenzaprine HCl [Flexeril] 10 mg PO Q8H PRN #20 tab 04/04/18 Rivaroxaban [Xarelto] 10 mg PO DAILY #9 tab 04/04/18 Review of Systems - Review of Systems Constitutional: Denies: chills, fever EENTM: Denies: no symptoms reported Respiratory: States: short of breath. Denies: cough, wheezing Cardiology: States: chest pain. Denies: edema, palpitations, syncope Gastrointestinal/Abdominal: States: no symptoms reported. Denies: abdominal pain, nausea, vomiting Genitourinary: States: no symptoms reported Musculoskeletal: States: no symptoms reported Skin: States: no symptoms reported Neurological: States: no symptoms reported Endocrine: States: no symptoms reported Past Medical History (General) - Patient Medical History Hx Seizures: No Hx Stroke: No Hx Asthma: No Hx of COPD: No Hx Cardiac Disorders: No Hx Congestive Heart Failure: No Hx Pacemaker: No Hx Hypertension: No Hx Diabetes: No Hx MRSA: No Surgical History: gastric bypass - Vaccination History Hx Tetanus, Diphtheria Vaccination: - unknown Hx Influenza Vaccination: No Hx Pneumococcal Vaccination: No - Social History Hx Tobacco Use: Yes Hx Alcohol Use: No Hx Substance Use: No Hx Substance Use Treatment: No Hx Depression: Yes Hx Physical Abuse: No Hx Emotional Abuse: No - Female History Patient : No Family Medical History - Family History Mother Family History: Unknown Living Status: Hx Family Asthma: No Hx Family Congestive Heart Failure: Yes Hx Family Hypertension: Yes Hx Family Stroke: Yes Hx Cardiac Disease: Yes Hx Family Diabetes: Yes Hx Family Cancer: No Physical Exam - Physical Exam General Appearance: Alert, No apparent distress Eye Exam: bilateral normal Ears, Nose, Throat: hearing grossly normal, normal ENT inspection, normal pharynx Neck: non-tender, full range of motion, supple Respiratory: lungs clear, normal breath sounds Cardiovascular/Chest: regular rate, rhythm, no murmur Gastrointestinal/Abdominal: normal bowel sounds, non tender, soft, no organomegaly Back Exam: normal inspection, no CVA tenderness, no vertebral tenderness Extremity: normal range of motion, non-tender, other - R KNEE SURGICAL DRESSING CLEAN AND DRY, NOT REMOEVED. MILD ERYTHEMA, NO INDURATION NO HOMANS. NVI Neurologic: no motor/sensory deficits, alert Skin Exam: warm/dry Lymphatic: no adenopathy Progress - Progress Progress: 04/05/18 15:52 ELEVATED D DIMER AND TROP. WILL GET CTA CHEST. 04/05/18 16:50: REIVIEWED LAB, CURRENTLY PAIN FREE AND VSS 1700: D/W ROB, ADVISED TRANSFER, PT AND FAMILY WOULD LIKE TO GO TO [facility] [address] ZAMUDIO, N/A 1710 D/W DR LANGFORD AGREES TO TRANSFER, D/W HOSPITALIST AGREES TO ADMIT. - EKG/XRAY/CT EKG: Sinus - RATE 88, NL AXIS, IN TINERVALS, , nonspecific ST T wave Chg - INVERSION INF LEADS, NAIP, , Changed from - 03/08/18 Departure - Departure Clinical Impression: Chest pain, Cardiac enzymes elevated Time of Disposition: 17:00 Disposition: Transfer to Hospital Condition: Fair Departure Forms: ED Discharge - Pt. Copy, Patient Portal Self Enrollment Referrals: Eliana Landon ROOF DESIGNER [Primary Care Provider] - 1-2 Weeks Home Medications: Ambulatory Orders Ibuprofen [Advil] 600 mg PO TID PRN 03/09/17 Cyclobenzaprine HCl [Flexeril] 10 mg PO Q8H PRN #20 tab 04/04/18 Rivaroxaban [Xarelto] 10 mg PO DAILY #9 tab 04/04/18 Critical Care Note - Critical Care Note Total Time (mins): 60 Comments: EVENT: CP, SOB FINDINGS: ELEVATED CARDIAC ENZYMES, ELEVATED D DIMER, ABNORMAL EKG ARACELIS: CARDIOVASCULAR, PULMONARY INTERVENTION: LOVENOX, ASA, MONITORING, MULITPLE CONSULTATIONS, ARRANGEMENT OF TRANSFER. TIME 60 Transfer to Outside Facility - Transfer Information Accepting Facility: [facility] Reason for Transfer: specialized care not available
--- NOTE | 2018-04-05 15:07 | RAD ---
EXAM DESCRIPTION: Chest,1 View CLINICAL HISTORY: 57 years Female, SOB COMPARISON: Previous study March 08, 2018 TECHNIQUE: AP portable chest. FINDINGS: Heart size is prominent with normal pulmonary vascularity. No consolidating infiltrate. Minimal linear scarring in the left lung base. No pulmonary mass or worrisome nodule. No pneumothorax or pleural effusion. Bones are unremarkable. No significant change since previous study. IMPRESSION: Prominent heart without congestive failure. Electronically signed by: Gokul Fragoso MD 04/05/2018 3:06 PM [facility]
--- NOTE | 2018-04-05 16:24 | CT ---
EXAM DESCRIPTION: CTA Chest CLINICAL HISTORY: 57 years, Female, ELEVATED D DIMER, R/O PE COMPARISON: Chest x-ray April 05, 2018 TECHNIQUE: CT pulmonary angiography is performed with thin-section multi detector technique during rapid bolus administration of routine adult dose of nonionic iodinated IV contrast media. Multiplanar reformatted images are reviewed along with source images and maximum intensity projection three dimensional images which were created on a separate dedicated workstation and are stored in the patient's medical record. FINDINGS: Normal enhancement of pulmonary arteries. Normal enhancement of cardiac chambers. Early enhancement of the aorta is negative for aneurysm or dissection. Lung window images are negative for infiltrate. Discoid atelectasis is seen in the lung bases. Mild biapical pleural-parenchymal scarring. No worrisome mass or nodule. In the upper abdomen, surgical changes are seen in the region of the stomach suggesting gastric bypass. Otherwise upper abdominal viscera are unremarkable. No chest wall mass or rib fracture. No axillary or lower cervical adenopathy. Coronal and sagittal reformatted MIP images confirm normal pulmonary arterial enhancement. IMPRESSION: Negative for evidence of pulmonary embolic disease. This exam was performed according to our departmental dose-optimization program, which includes automated exposure control, adjustment of the mA and/or kV according to patient size and/or use of iterative reconstruction technique. Total DLP equals 630.07 mGycm. Electronically signed by: Gokul Fragoso MD 04/05/2018 4:23 PM GRAINING MACHINE OPERATOR
[2018-04-05] MEDS ORDERED: ENOXAPARIN SODIUM 80 MG/0.8 ML SYG SUBCU ONE (17:17)
[2018-04-05] MEDS: ASPIRIN (CHEWABLE) 81 MG TAB PO ONE (17:24)
[2018-04-05] MEDS: NITROGLYCERIN 0.1 MG/HR PATCH TD ONE (17:25)
[2018-04-05 17:53] VITALS: O2SAT 98
[2018-04-05 18:02] VITALS: BP 134/72; TEMP 99
== END 2018-04-05 18:02 | disposition short-term general hospital (02) ==
LOC: ER 14:07
DX: R07.9 Chest pain, unspecified (principal); R79.89 Other specified abnormal findings of blood chemistry; R06.02 Shortness of breath; F32.9 Major depressive disorder, single episode, unspecified; Z87.891 Personal history of nicotine dependence; Z98.84 Bariatric surgery status; Z79.899 Other long term (current) drug therapy; Z88.5 Allergy status to narcotic agent; Z96.651 Presence of right artificial knee joint
CPT/HCPCS: 71045; 71275; 80053; 83880; 84484; 85025; 85379; 93005; J1650

== ENCOUNTER → 2018-04-22 | Outpatient (CLI) | payer MEDICARE, MEDICAID | LOC: LAB.O 13:50 | PROVIDERS: ATTEND Nurse Practitioner Family | DX: A04.72 Enterocolitis due to Clostridium difficile, not specified as recurrent (principal) ==

== ENCOUNTER → 2018-05-08 | Outpatient (CLI) | payer MEDICARE, MEDICAID | LOC: YCFC.O 14:15 | PROVIDERS: ATTEND Nurse Practitioner Family | DX: E87.6 Hypokalemia (principal) ==

== ENCOUNTER → 2018-05-15 | Outpatient (CLI) | payer MEDICARE, MEDICAID | LOC: YCFC.O 11:40 | PROVIDERS: ATTEND Nurse Practitioner Family | DX: E87.6 Hypokalemia (principal) ==

== ENCOUNTER 2018-06-12 05:36 | Day surgery (SDC) | payer MEDICARE, MEDICAID ==
--- NOTE | 2018-06-11 07:57 | HP ---
CHIEF COMPLAINT: Right knee stiffness. HISTORY OF PRESENT ILLNESS: Eliana is a 58-year-old female with a history of total knee arthroplasty. Unfortunately, she suffered a heart attack at some point afterwards and had a delay in her therapy. She developed some stiffness in the knee. She has done okay with physical therapy, but continues to have some stiffness. I talked to her about options. At this point in her recovery, just given the fact that she has had some difficulty with compliance, perhaps a closed manipulation would be in order. We talked about options otherwise and she has given informed consent for closed manipulation. PAST SURGICAL HISTORY: 1. Total knee arthroplasty. 2. Knee arthroscopy. MEDICATIONS: 1. Amoxicillin. 2. Atorvastatin. 3. Brilinta. 4. Carvedilol. 5. Cipro. 6. Cyclobenzaprine. 7. Metronidazole. 8. Ondansetron. 9. Potassium chloride. 10. Promethazine. 11. Tramadol. 12. Xarelto. ALLERGIES: CODEINE. CODE STATUS: Full code. IMMUNIZATIONS: Up to date. FAMILY HISTORY: None pertinent to today's complaint. SOCIAL HISTORY: The patient does not drink or use any illicit drugs. She uses occasional tobacco. REVIEW OF SYSTEMS: Negative except as indicated in the History of Present Illness. PHYSICAL EXAMINATION: VITAL SIGNS: Blood pressure 143/90. Pulse 93. Height 5'3". Weight 150. MENTAL STATUS: The patient is awake, alert, and is able to give a good history and participate in the physical. The patient is oriented to person, place and time. SKIN: Normal tone and turgor. MUSCULOSKELETAL: She lacks a couple of degrees of extension and her flexion is to about 95 degrees today. She has intact sensation throughout the extremity and it is warm and well perfused. She has no varus/valgus or anterior/posterior laxity. She has no swelling. There is no effusion, no erythema and no malalignment. ASSESSMENT: 1. Arthrofibrosis. PLAN: At this point, we have discussed options and just given her current situation, I think it would be prudent to move forward with closed manipulation. We have discussed the risks, benefits, and alternatives to that and the patient has given informed consent. #[id number] [facility]
[2018-06-12] MEDS ORDERED: PROPOFOL 200 MG/20 ML VIAL IV ONE (10:00)
[2018-06-12] MEDS ORDERED: MIDAZOLAM INJ 2 MG/2 ML VIAL ONE (11:01)
[2018-06-12] MEDS ORDERED: KETAMINE HCL 100 MG/ML VIAL ONE (11:01)
[2018-06-12] MEDS: LACTATED RINGERS 1,000 ML ONE (12:10)
[2018-06-12 13:55] VITALS: BP 155/78; TEMP 97; O2SAT 99
--- NOTE | 2018-06-13 09:48 | OP ---
DATE OF PROCEDURE: 06/12/18 PREOPERATIVE DIAGNOSIS: 1. Arthrofibrosis of the hip. POSTOPERATIVE DIAGNOSIS: 1. Arthrofibrosis of the hip. PROCEDURE: 1. Manipulation under anesthesia. SURGEON: John Lugo MD. MARINE MECHANIC: Alexander León CST, SA-C. ANESTHESIA: Conscious sedation. COMPLICATIONS: None. FINDINGS: Preprocedure range of motion to approximately 95 to 100 degrees and postprocedure range of motion to approximately 130 degrees. INDICATION: Ms. North has a history of total knee arthroplasty. Unfortunately, she was unable to fully complete her therapy. Because of that, she did develop some stiffness. Following discussions with her about that, she gave informed consent for closed manipulation. PROCEDURE: The patient was brought to the Operating Room and placed in supine position. Sedation was administered and the knee was hyperflexed. Following hyperflexion and extension, fluoroscopy imaging was performed to ensure that the prosthesis was still in alignment and no acute complications had occurred. The patient was then awoken and taken back to the Day Surgery Unit. POSTOPERATIVE INSTRUCTIONS: She will begin physical therapy today and she has been counseled on doing that every day at home as well. #[id number] MTDD
== END 2018-06-12 13:50 | disposition home or self-care (01) ==
LOC: AMB 05:36
PROVIDERS: ATTEND Orthopaedic Surgery
DX: M24.661 Ankylosis, right knee (principal); I25.10 Atherosclerotic heart disease of native coronary artery without angina pectoris; I25.2 Old myocardial infarction; Z96.651 Presence of right artificial knee joint; Z88.5 Allergy status to narcotic agent; Z95.5 Presence of coronary angioplasty implant and graft; Z87.891 Personal history of nicotine dependence; Z98.84 Bariatric surgery status; Z79.01 Long term (current) use of anticoagulants; Z79.899 Other long term (current) drug therapy
CPT/HCPCS: 01380; 27570; J2250; J3490; J7120

== ENCOUNTER → 2018-08-12 | Outpatient (CLI) | payer MEDICARE, MEDICAID | LOC: YCFC.O 11:03 | PROVIDERS: ATTEND Nurse Practitioner Family | DX: K52.9 Noninfective gastroenteritis and colitis, unspecified (principal) ==

== ENCOUNTER → 2018-09-12 | Outpatient (CLI) | payer MEDICARE, MEDICAID | LOC: LAB.O 10:35 | PROVIDERS: ATTEND Internal Medicine Interventional Cardiology | DX: E78.5 Hyperlipidemia, unspecified (principal) ==